=== PATIENT | female | born 1990 | race Caucasian/White ===

== ENCOUNTER 2017-10-18 12:22 | Inpatient (IN) | payer MEDICAID ==
[~2017-10-18] VITALS: Ht 160 cm; Wt 59.7 kg
[2017-10-18 13:06] LABS: BASOPHILS % (AUTO) 0.4 % (0.0-2.0); EOSINOPHILS % (AUTO) 0.4 % (1.0-6.0); HEMOGLOBIN 11.9 g/dL (12.0-16.0); LYMPHOCYTES # (AUTO) 1.2 K/uL (1.0-4.8); LYMPHOCYTES % (AUTO) 11.4 % (22.0-44.0); MEAN CORPUSCULAR HEMOGLOBIN 28.9 pg (26.0-34.0); MEAN CORPUSCULAR HGB CONC 33.1 G/dL (31.0-37.0); MEAN CORPUSCULAR VOLUME 87 fL (80-100); MONOCYTES # (AUTO) 1.3 K/uL (0.1-1.0); NEUTROPHILS # (AUTO) 7.9 K/uL (1.8-7.7); NEUTROPHILS % (AUTO) 75.8 % (40.0-70.0); PLATELET COUNT (AUTO) 270 K/uL (150-450); RED BLOOD CELL COUNT(AUTO) 4.12 MIL/uL (4.00-5.20); RED CELL DISTRIBUTION WIDTH 12.8 % (11.5-14.5)
[2017-10-18 13:16] LABS: ANION GAP 8 mmol/L (8-16); CALCIUM, TOTAL 9.3 mg/dL (8.8-10.5); CARBON DIOXIDE 29 mmol/L (22-29); CHLORIDE 106 mmol/L (98-107); CREATININE 0.52 mg/dL (0.60-1.30); GLOMERULAR FILTR. RATE CALC > 60 mL/min (>60); GLUCOSE,RANDOM 82 mg/dL (70-110); POTASSIUM 4.3 mmol/L (3.5-5.1); SODIUM SERUM 143 mmol/L (136-145); UREA NITROGEN, BLOOD 13 mg/dL (7-18)
[2017-10-18 13:20] LABS: ALANINE AMINOTRANSFERASE 28 U/L (12-78); ALBUMIN 3.9 g/dL (3.4-5.0); ALKALINE PHOSPHATASE 81 U/L (46-116); ASPARTATE AMINOTRANSFERASE 22 U/L (15-37); BILIRUBIN,TOTAL 0.5 mg/dL (0.1-1.0); TOTAL PROTEIN, SERUM 7.7 g/dL (6.4-8.2)
[2017-10-18] MEDS ORDERED: LORazepam 2 MG TABLET PO ONE (14:15)
[2017-10-18 14:41] LABS: AMPHET/METH SCREEN,URINE POSITIVE (NEGATIVE); BARBITURATE SCREEN, URINE NEGATIVE (NEGATIVE); BENZODIAZEPINES SCREEN,URINE NEGATIVE (NEGATIVE); CANNABINOID SCREEN,URINE NEGATIVE (NEGATIVE); COCAINE SCREEN,URINE NEGATIVE (NEGATIVE); METHADONE SCREEN, URINE NEGATIVE (NEGATIVE); OPIATE SCREEN,URINE NEGATIVE (NEGATIVE); PHENCYCLIDINE SCREEN,URINE NEGATIVE (NEGATIVE)
[2017-10-18] MEDS ORDERED: ZOLPIDEM TARTRATE 10 MG TABLET PO PRN (15:30)
[2017-10-18] MEDS ORDERED: HALOPERIDOL 5 MG TABLET PO PRN (15:30)
[2017-10-18 21:32] VITALS: BP 123/79
[2017-10-18] MEDS ORDERED: INFLUENZA VIRUS VACCINE QVS 2017-18 (3YR+)/PF 60 MCG/0.5 ML SYRINGE IM ONE (22:00)
[2017-10-19 06:11] LABS: CHOL/HDL RATIO 1.9 (3.9-5.7)
[2017-10-19] MEDS ORDERED: MAG HYDROX/AL HYDROX/SIMETH ES 30 ML SUSPENSION UDCUP PO PRN (08:45)
[2017-10-19] MEDS ORDERED: CloNIDine HCL 0.1 MG TABLET PO PRN (08:45)
[2017-10-19] MEDS ORDERED: LOPERAMIDE HCL 2 MG CAPSULE PO PRN (08:45)
[2017-10-19] MEDS ORDERED: PETROLATUM,WHITE 71 GM JELLY TP PRN (08:45)
[2017-10-19] MEDS ORDERED: BACITRACIN 28.4 GM OINTMENT TP PRN (08:45)
[2017-10-19] MEDS ORDERED: IBUPROFEN 600 MG TABLET PO PRN (08:45)
[2017-10-19] MEDS ORDERED: MAGNESIUM HYDROXIDE SUSPENSION 30 ML UDCUP PO PRN (08:45)
[2017-10-19 15:57] VITALS: BP 108/72
[2017-10-19] MEDS: RisperiDONE 1 MG TABLET PO SCH (21:22)
[2017-10-20 07:35] VITALS: BP 101/74
[2017-10-20 07:41] VITALS: BP 115/67
[2017-10-20 08:00] VITALS: BP 115/67
[2017-10-20] MEDS ORDERED: ALBUTEROL SULFATE 2.5 MG/0.5 ML NEB SOLUTION NEB PRN (08:00)
[2017-10-20] MEDS ORDERED: GuaiFENesin/D-METHORPHAN/PHENYLEPH 5 ML LIQUID ORAL.SYG PO PRN (08:00)
[2017-10-20] MEDS ORDERED: IPRATROPIUM BROMIDE 0.5 MG/2.5 ML NEB SOLUTION NEB PRN (08:00)
[2017-10-20] MEDS: RisperiDONE 1 MG TABLET PO SCH (11:17)
[2017-10-20 19:29] VITALS: BP 129/77
[2017-10-21] MEDS ORDERED: DiphenhydrAMINE HCL 50 MG/ML VIAL IM ONE (08:15)
[2017-10-21 08:30] VITALS: BP 134/93
[2017-10-21] MEDS: RisperiDONE 1 MG TABLET PO SCH ×2 (08:47→16:54)
[2017-10-21] MEDS: CHOLECALCIFEROL (VIT D3) 1,000 UNITS TABLET PO SCH (08:48)
[2017-10-21 16:44] VITALS: BP 126/77
[2017-10-22] MEDS: BENZTROPINE MESYLATE 1 MG TABLET PO SCH ×2 (09:21→16:08)
[2017-10-22] MEDS: CHOLECALCIFEROL (VIT D3) 1,000 UNITS TABLET PO SCH (09:21)
[2017-10-22] MEDS: RisperiDONE 1 MG TABLET PO SCH ×2 (09:21→16:08)
[2017-10-22 16:19] VITALS: BP 138/93
[2017-10-22] MEDS: LORazepam 2 MG TABLET PO PRN (21:20)
[2017-10-23 08:58] VITALS: BP 118/79
[2017-10-23] MEDS: CHOLECALCIFEROL (VIT D3) 1,000 UNITS TABLET PO SCH (10:25)
[2017-10-23] MEDS: RisperiDONE 1 MG TABLET PO SCH ×2 (10:25→16:13)
[2017-10-23] MEDS: BENZTROPINE MESYLATE 1 MG TABLET PO SCH ×2 (10:25→16:13)
[2017-10-23 20:03] VITALS: BP 132/78
[2017-10-23] MEDS: ACETAMINOPHEN 325 MG TABLET PO PRN (20:03)
[2017-10-24 00:07] VITALS: BP 121/74
[2017-10-24 09:25] VITALS: BP 129/81
[2017-10-24] MEDS: BENZTROPINE MESYLATE 1 MG TABLET PO SCH ×2 (10:15→16:11)
[2017-10-24] MEDS: RisperiDONE 1 MG TABLET PO SCH ×2 (10:15→16:11)
[2017-10-24] MEDS: CHOLECALCIFEROL (VIT D3) 1,000 UNITS TABLET PO SCH (10:15)
[2017-10-24 18:32] VITALS: BP 125/77
[2017-10-25] MEDS: ALBUTEROL SULFATE HFA 90 MCG/PUFF 8 GM INHALER IH PRN (08:59)
[2017-10-25] MEDS: CHOLECALCIFEROL (VIT D3) 1,000 UNITS TABLET PO SCH (08:59)
[2017-10-25] MEDS: ONDANSETRON HCL 4 MG TABLET PO PRN (08:59)
[2017-10-25] MEDS: BENZTROPINE MESYLATE 1 MG TABLET PO SCH ×2 (08:59→15:58)
[2017-10-25] MEDS: RisperiDONE 1 MG TABLET PO SCH ×2 (09:00→15:58)
[2017-10-25 09:15] VITALS: BP 116/80
[2017-10-25] MEDS: BENZOCAINE/MENTHOL LOZENGE [8 LOZENGES/PACKET] MM PRN (17:21)
[2017-10-25 18:44] VITALS: BP 119/78
[2017-10-26 09:17] VITALS: BP 107/53
[2017-10-26] MEDS: CHOLECALCIFEROL (VIT D3) 1,000 UNITS TABLET PO SCH (09:17)
[2017-10-26] MEDS: BENZTROPINE MESYLATE 1 MG TABLET PO SCH ×2 (09:18→16:20)
[2017-10-26] MEDS: RisperiDONE 1 MG TABLET PO SCH ×2 (09:18→16:20)
[2017-10-26 17:02] VITALS: BP 126/86
[2017-10-27] MEDS: BENZTROPINE MESYLATE 1 MG TABLET PO SCH ×2 (08:08→17:14)
[2017-10-27] MEDS: ALBUTEROL SULFATE HFA 90 MCG/PUFF 8 GM INHALER IH PRN (08:08)
[2017-10-27] MEDS: CHOLECALCIFEROL (VIT D3) 1,000 UNITS TABLET PO SCH (08:08)
[2017-10-27] MEDS: RisperiDONE 1 MG TABLET PO SCH ×2 (08:09→17:14)
[2017-10-27 08:31] VITALS: BP 122/67
[2017-10-27] MEDS: LORazepam 2 MG TABLET PO PRN (08:46)
[2017-10-27 21:30] VITALS: BP 120/71
[2017-10-28 09:11] VITALS: BP 134/98
[2017-10-28] MEDS: ALBUTEROL SULFATE HFA 90 MCG/PUFF 8 GM INHALER IH PRN (09:15)
[2017-10-28] MEDS: BENZTROPINE MESYLATE 1 MG TABLET PO SCH ×2 (09:15→16:36)
[2017-10-28] MEDS: RisperiDONE 1 MG TABLET PO SCH ×2 (09:15→16:36)
[2017-10-28] MEDS: CHOLECALCIFEROL (VIT D3) 1,000 UNITS TABLET PO SCH (09:15)
[2017-10-28] MEDS: LORazepam 2 MG TABLET PO PRN (09:16)
[2017-10-28 18:51] VITALS: BP 106/85
[2017-10-29 06:29] VITALS: BP 134/82
[2017-10-29] MEDS: ACETAMINOPHEN 325 MG TABLET PO PRN (06:33)
[2017-10-29] MEDS: RisperiDONE 1 MG TABLET PO SCH ×2 (08:26→16:22)
[2017-10-29] MEDS: CHOLECALCIFEROL (VIT D3) 1,000 UNITS TABLET PO SCH (08:26)
[2017-10-29] MEDS: BENZTROPINE MESYLATE 1 MG TABLET PO SCH ×2 (08:26→16:22)
[2017-10-29 08:57] VITALS: BP 124/76
[2017-10-29] MEDS: ALBUTEROL SULFATE HFA 90 MCG/PUFF 8 GM INHALER IH PRN (16:20)
[2017-10-29 17:46] VITALS: BP 127/78
[2017-10-30] MEDS: CHOLECALCIFEROL (VIT D3) 1,000 UNITS TABLET PO SCH (09:10)
[2017-10-30] MEDS: LORazepam 2 MG TABLET PO PRN (09:10)
[2017-10-30] MEDS: ONDANSETRON HCL 4 MG TABLET PO PRN (09:10)
[2017-10-30] MEDS: BENZTROPINE MESYLATE 1 MG TABLET PO SCH (09:11)
[2017-10-30] MEDS: RisperiDONE 1 MG TABLET PO SCH (09:11)
[2017-10-30] MEDS ORDERED: BENZ1TAB10 PO (09:33)
[2017-10-30] MEDS ORDERED: RISP1 PO (09:34)
[2017-10-30] MEDS ORDERED: VITAD1000 PO (09:36)
[2017-10-30 10:03] VITALS: BP 147/77
[2017-10-30] MEDS: BENZOCAINE/MENTHOL LOZENGE [8 LOZENGES/PACKET] MM PRN (10:50)
== END 2017-10-30 15:03 | disposition home or self-care (01) | DRG 751 ==
LOC: EMS 12:27 → EDBD 12:27 → AHU 20:30 → 3EI 10-20 19:00
PROVIDERS: ADMIT Psychiatry & Neurology Psychiatry; ATTEND Psychiatry & Neurology Child & Adolescent Psychiatry
PROC: 3E0234Z Introduction of Serum, Toxoid and Vaccine into Muscle, Percutaneous Approach (ICD-10-PCS; principal; 2017-10-18)
DX: F23 Brief psychotic disorder (principal); Z91.19 Patient's noncompliance with other medical treatment and regimen; E55.9 Vitamin D deficiency, unspecified; F15.10 Other stimulant abuse, uncomplicated; F41.9 Anxiety disorder, unspecified; G47.00 Insomnia, unspecified; J45.909 Unspecified asthma, uncomplicated; F14.90 Cocaine use, unspecified, uncomplicated; F17.200 Nicotine dependence, unspecified, uncomplicated; Z88.8 Allergy status to other drugs, medicaments and biological substances; Z59.0 Homelessness; Z23 Encounter for immunization
CPT/HCPCS: 82306; 84443; 99285; G0480; J1200; J3535; Q0162

== ENCOUNTER 2017-12-23 09:14 | Inpatient (IN) | payer MEDICAID ==
[~2017-12-23] VITALS: Ht 157.5 cm; Wt 61.4 kg
[~2017-12-23 09:14] MED LIST: BENZ1TAB10 PO; RISP1 PO; RISP2 PO; VITAD1000 PO
[2017-12-23 09:44] LABS: BASOPHILS % (AUTO) 0.8 % (0.0-2.0); EOSINOPHILS % (AUTO) 0.7 % (1.0-6.0); HEMATOCRIT 37.2 % (36-46); HEMOGLOBIN 12.4 g/dL (12.0-16.0); LYMPHOCYTES # (AUTO) 1.8 K/uL (1.0-4.8); LYMPHOCYTES % (AUTO) 29.4 % (22.0-44.0); MEAN CORPUSCULAR HGB CONC 33.2 G/dL (31.0-37.0); MEAN CORPUSCULAR VOLUME 87 fL (80-100); MONOCYTES # (AUTO) 0.5 K/uL (0.1-1.0); MONOCYTES % (AUTO) 9.1 % (2.0-9.0); NEUTROPHILS # (AUTO) 3.6 K/uL (1.8-7.7); PLATELET COUNT (AUTO) 218 K/uL (150-450); RED BLOOD CELL COUNT(AUTO) 4.26 MIL/uL (4.00-5.20); RED CELL DISTRIBUTION WIDTH 13.1 % (11.5-14.5)
[2017-12-23 09:53] LABS: ANION GAP 8 mmol/L (8-16); CALCIUM, TOTAL 9.3 mg/dL (8.8-10.5); CARBON DIOXIDE 27 mmol/L (22-29); CHLORIDE 104 mmol/L (98-107); CREATININE 0.76 mg/dL (0.60-1.30); GLOMERULAR FILTR. RATE CALC > 60 mL/min (>60); GLUCOSE,RANDOM 87 mg/dL (70-110); POTASSIUM 3.6 mmol/L (3.5-5.1); SODIUM SERUM 139 mmol/L (136-145); UREA NITROGEN, BLOOD 12 mg/dL (7-18)
[2017-12-23 09:59] LABS: ALANINE AMINOTRANSFERASE 20 U/L (12-78); ALBUMIN 3.7 g/dL (3.4-5.0); ALKALINE PHOSPHATASE 52 U/L (46-116); ASPARTATE AMINOTRANSFERASE 13 U/L (15-37); BILIRUBIN,TOTAL 0.5 mg/dL (0.1-1.0); TOTAL PROTEIN, SERUM 7.5 g/dL (6.4-8.2)
[2017-12-23] MEDS ORDERED: HALOPERIDOL LACTATE 5 MG/ML VIAL IM ONE (10:00)
[2017-12-23] MEDS ORDERED: DiphenhydrAMINE HCL 50 MG/ML VIAL IM ONE (10:00)
[2017-12-23] MEDS ORDERED: LORazepam 2 MG/ML VIAL IM ONE (10:00)
[2017-12-23 10:11] LABS: AMPHET/METH SCREEN,URINE POSITIVE (NEGATIVE); BARBITURATE SCREEN, URINE NEGATIVE (NEGATIVE); BENZODIAZEPINES SCREEN,URINE NEGATIVE (NEGATIVE); CANNABINOID SCREEN,URINE NEGATIVE (NEGATIVE); COCAINE SCREEN,URINE NEGATIVE (NEGATIVE); METHADONE SCREEN, URINE NEGATIVE (NEGATIVE); OPIATE SCREEN,URINE NEGATIVE (NEGATIVE); PHENCYCLIDINE SCREEN,URINE NEGATIVE (NEGATIVE)
[2017-12-23] MEDS ORDERED: ZOLPIDEM TARTRATE 10 MG TABLET PO PRN (10:45)
[2017-12-23 11:05] LABS: BILIRUBIN,URINE NEGATIVE (NEGATIVE); GLUCOSE, URINE (UA) NEGATIVE (NEGATIVE); KETONES,URINE NEGATIVE (NEGATIVE); LEUKOCYTE ESTERASE ,URINE NEGATIVE (NEGATIVE); NITRATE,URINE NEGATIVE (NEGATIVE); OCCULT BLOOD,URINE NEGATIVE (NEGATIVE); PROTEIN,URINE TRACE (NEGATIVE); UROBILINOGEN,URINE 0.2 mg/dL (<=1.0)
[2017-12-23 11:10] LABS: APPEARANCE,URINE SLIGHTLY CLOUDY (CLEAR)
[2017-12-23 11:11] LABS: RBC,URINE None Seen /HPF (0-2)
[2017-12-23 11:13] LABS: BACTERIA,URINE Few /HPF (None Seen); SQUAMOUS EPITHELIAL CELL,UR Moderate /LPF (None Seen); WBC,URINE 0-2 /HPF (0-5)
[2017-12-23 11:14] LABS: CALCIUM OXALATE CRYSTALS,UR Few /LPF (None Seen)
[2017-12-23] MEDS ORDERED: PNEUMOCOCCAL VACCINE POLYVALENT 0.5 ML VIAL [PPSV23] IM ONE (13:45)
[2017-12-23] MEDS: HALOPERIDOL 5 MG TABLET PO PRN (17:07)
[2017-12-23] MEDS: LORazepam 2 MG TABLET PO PRN (17:07)
[2017-12-24 03:15] VITALS: BP 123/98
[2017-12-24 08:33] VITALS: BP 109/81
[2017-12-24] MEDS ORDERED: PETROLATUM,WHITE 71 GM JELLY TP PRN (09:45)
[2017-12-24] MEDS ORDERED: IBUPROFEN 600 MG TABLET PO PRN (09:45)
[2017-12-24] MEDS ORDERED: MAGNESIUM HYDROXIDE SUSPENSION 30 ML UDCUP PO PRN (09:45)
[2017-12-24] MEDS ORDERED: LOPERAMIDE HCL 2 MG CAPSULE PO PRN (09:45)
[2017-12-24] MEDS ORDERED: ACETAMINOPHEN 325 MG TABLET PO PRN (09:45)
[2017-12-24] MEDS ORDERED: BENZOCAINE/MENTHOL LOZENGE MM PRN (09:45)
[2017-12-24] MEDS ORDERED: BACITRACIN 28.4 GM OINTMENT TP PRN (09:45)
[2017-12-24] MEDS ORDERED: ONDANSETRON HCL 4 MG TABLET PO PRN (09:45)
[2017-12-24] MEDS ORDERED: MAG HYDROX/AL HYDROX/SIMETH ES 30 ML SUSPENSION UDCUP PO PRN (09:45)
[2017-12-24] MEDS ORDERED: CloNIDine HCL 0.1 MG TABLET PO PRN (09:45)
[2017-12-24] MEDS ORDERED: ALBUTEROL SULFATE 2.5 MG/0.5 ML NEB SOLUTION NEB PRN (10:45)
[2017-12-24] MEDS ORDERED: IPRATROPIUM BROMIDE 0.5 MG/2.5 ML NEB SOLUTION NEB PRN (10:45)
[2017-12-24 16:31] VITALS: BP 105/66
[2017-12-24] MEDS: ALBUTEROL SULFATE HFA 90 MCG/PUFF 8 GM INHALER IH PRN (16:31)
[2017-12-25 06:33] VITALS: BP 99/65
[2017-12-25 08:11] VITALS: BP 118/71
[2017-12-25] MEDS: CHOLECALCIFEROL (VIT D3) 1,000 UNITS TABLET PO SCH (08:38)
[2017-12-25] MEDS: RisperiDONE 1 MG TABLET PO SCH ×2 (08:38→16:01)
[2017-12-25 16:00] VITALS: BP 110/60
[2017-12-25] MEDS: ALBUTEROL SULFATE HFA 90 MCG/PUFF 8 GM INHALER IH PRN (16:06)
[2017-12-25] MEDS: LORazepam 2 MG TABLET PO PRN (17:31)
[2017-12-26 01:11] VITALS: BP 104/63
[2017-12-26] MEDS: CHOLECALCIFEROL (VIT D3) 1,000 UNITS TABLET PO SCH (08:13)
[2017-12-26] MEDS: RisperiDONE 1 MG TABLET PO SCH ×2 (08:13→16:01)
[2017-12-26] MEDS: LORazepam 2 MG TABLET PO PRN (08:14)
[2017-12-26 08:22] VITALS: BP 118/69
[2017-12-26] MEDS: HALOPERIDOL 5 MG TABLET PO PRN (16:01)
[2017-12-26 16:05] VITALS: BP 108/72
[2017-12-27 05:12] VITALS: BP 103/85
[2017-12-27 08:13] VITALS: BP 112/90
[2017-12-27] MEDS: CHOLECALCIFEROL (VIT D3) 1,000 UNITS TABLET PO SCH (08:30)
[2017-12-27] MEDS: LORazepam 2 MG TABLET PO PRN (08:30)
[2017-12-27] MEDS: RisperiDONE 1 MG TABLET PO SCH ×2 (08:30→16:06)
[2017-12-27] MEDS: HALOPERIDOL 5 MG TABLET PO PRN (15:48)
[2017-12-27] MEDS: ALBUTEROL SULFATE HFA 90 MCG/PUFF 8 GM INHALER IH PRN (15:49)
[2017-12-27 16:00] VITALS: BP 109/74
[2017-12-28 02:33] VITALS: BP 132/61
[2017-12-28] MEDS: CHOLECALCIFEROL (VIT D3) 1,000 UNITS TABLET PO SCH (08:25)
[2017-12-28] MEDS: RisperiDONE 1 MG TABLET PO SCH ×2 (08:25→16:47)
[2017-12-28] MEDS: LORazepam 2 MG TABLET PO PRN (08:57)
[2017-12-28 09:06] VITALS: BP 118/73
[2017-12-28 16:51] VITALS: BP 114/70
[2017-12-29 06:44] VITALS: BP 120/82
[2017-12-29 08:39] VITALS: BP 124/78
[2017-12-29] MEDS: RisperiDONE 1 MG TABLET PO SCH ×2 (09:18→16:22)
[2017-12-29] MEDS: CHOLECALCIFEROL (VIT D3) 1,000 UNITS TABLET PO SCH (09:18)
[2017-12-29] MEDS: LORazepam 2 MG TABLET PO PRN (16:28)
[2017-12-29] MEDS: ALBUTEROL SULFATE HFA 90 MCG/PUFF 8 GM INHALER IH PRN (16:28)
[2017-12-29 17:50] VITALS: BP 134/79
[2017-12-30 06:16] VITALS: BP 105/58
[2017-12-30 08:10] VITALS: BP 107/76
[2017-12-30] MEDS: CHOLECALCIFEROL (VIT D3) 1,000 UNITS TABLET PO SCH (08:49)
[2017-12-30] MEDS: RisperiDONE 1 MG TABLET PO SCH ×2 (08:49→16:23)
[2017-12-30] MEDS: LORazepam 2 MG TABLET PO PRN (08:49)
[2017-12-30 16:30] VITALS: BP 115/77
[2017-12-30] MEDS: ALBUTEROL SULFATE HFA 90 MCG/PUFF 8 GM INHALER IH PRN (17:33)
[2017-12-30] MEDS ORDERED: RISP0.5T61 PO (22:53)
[2017-12-31] MEDS ORDERED: ALBU4TAB4 PO (01:57)
[2017-12-31 06:17] VITALS: BP 111/94
== END 2017-12-31 07:30 | disposition home or self-care (01) | DRG 750 ==
LOC: EMS 09:14 → B2S 11:11
PROVIDERS: ADMIT Psychiatry & Neurology Psychiatry; ATTEND Psychiatry & Neurology Psychiatry
DX: F25.9 Schizoaffective disorder, unspecified (principal); Z59.0 Homelessness; F15.10 Other stimulant abuse, uncomplicated; F17.200 Nicotine dependence, unspecified, uncomplicated; F41.9 Anxiety disorder, unspecified; G47.00 Insomnia, unspecified; J45.909 Unspecified asthma, uncomplicated; Z79.899 Other long term (current) drug therapy; Z71.51 Drug abuse counseling and surveillance of drug abuser; Z71.6 Tobacco abuse counseling; Z56.0 Unemployment, unspecified
CPT/HCPCS: 90471; 99285; G0480; J3535